=== PATIENT | female | born 1960 | race Caucasian/White ===

== ENCOUNTER 2020-01-30 05:53 | Outpatient (CLI) | payer BC, SELFPAY ==
[2020-01-30 16:51] LABS: SARS-CoV-2 RNA PCR Negative
== END 2020-01-30 05:54 | disposition home or self-care (01) ==
LOC: ANHCOVIDDT 05:54
PROVIDERS: Visit Provider Urology
DX: Z01.812 Encounter for preprocedural laboratory examination (principal); Z20.828 Contact with and (suspected) exposure to other viral communicable diseases
CPT/HCPCS: 87635; C9803; U0003

== ENCOUNTER 2020-01-31 00:54 | Day surgery (SDC) | payer BC, SELFPAY ==
[2020-01-30 14:56] VITALS: BMI 17.6
--- NOTE | ~2020-01-31 | XR_ITS ---
EXAMINATION: XR abdomen/kub 1V DATE: 01/31/2020 07:25 INDICATION: Nephrolithiasis for planned lithotripsy. TECHNIQUE: A supine view of the abdomen on 2 radiographs was obtained. COMPARISON: None. FINDINGS: 16 x 10 mm stone projecting over the proximal left ureter. A cluster of several smaller stones projec t over the lower pole of the left kidney. No right-sided nephrolithiasis. 8.5 cm diameter ball of sto ol at the rectum. No dilated loops of gas-filled bowel to suggest obstruction. IMPRESSION: 1. Left nephrolithiasis. 2. 8.5 cm ball of stool at the rectum. Correlate for constipation or possible fecal impaction. Reviewed, dictated and finalized at location A. IMPRESSION: 1. Left nephrolithiasis. 2. 8.5 cm ball of stool at the rectum. Correlate for constipation or possible f ecal impaction.
[2020-01-31] MEDS: LACTATED RINGERS 1,000 ML 30 ML IV CONT (07:30)
--- NOTE | 2020-01-31 07:42 | ECG_ITS ---
Measurements Intervals [place] Rate: 85 P: 67 [place]: 166 QRS: 85 QRSD: 86 T: 68 QT: 365 QTc: 434 Interpretive Statements SINUS RHYTHM BASELINE ARTIFACT- I, AVR, AVL NORMAL ECG Electronically Signed On 01-31-2020 8:26:04 CDT by Bolivar Elizalde D.O.
[2020-01-31 08:01] VITALS: BP 135/61; PULSE 98; RESP 16; TEMP 36.4; O2SAT 100
[2020-01-31 08:14] LABS: INR 1.1
[2020-01-31 08:15] LABS: Partial Thromboplastin Time 34.4 SECONDS (22.3-36.8)
--- NOTE | 2020-01-31 08:36 | P.HP_ITS ---
H&P: HPI History of Present Illness Chief complaint: Left Ureteral Stone Narrative: Katie Daniels is a 59 year old female who was recently seen at [facility] in [place]. Full she was originally admitted for progressive weakness. During her evaluation she was found to have a 12-13 mm left ureteral calculus with hydronephrosis. Surprisingly she had been completely asymptomatic. Her white count was normal we can have no sign of urinary tract infection. Her renal function was normal. Patient has a history of stones and was adamant to not have a stent placed despite our recommendations. She now presents for lithotripsy of the left ureteral calculus. Review of Systems Constitutional: Constitutional: Reports weakness Eyes: Eyes: Reports as per HPI ENT: Reports as per HPI Cardiovascular: Cardiovascular: Reports as per HPI Respiratory: Respiratory: Reports as per HPI Gastrointestinal: Gastrointestinal: Reports as per HPI Meds Home Medications and Allergies Home Medications Medication Instructions Recorded Confirmed Type cephalexin [Keflex] 500 mg PO Q6H 01/30/20 01/31/20 History cyanocobalamin (vitamin B-12) 1,000 mcg SUBCUT DAILY 01/30/20 01/31/20 History folic acid 1 mg PO DAILY 01/30/20 01/31/20 History Allergies Allergy/AdvReac Type Severity Reaction Status Date / Time No Known Allergies Allergy Verified 01/31/20 07:32 Vital Signs Vital Signs - 24 hr 01/31/20 08:01 Temperature 36.4 C Pulse Rate 98 Respiratory Rate 16 Blood Pressure 135/61 Pulse Oximetry 100 Exam Const: General: no acute distress HENMT: General nose exam: Normal nares present Eyes: EOM: EOMs intact bilaterally Resp: Effort & Inspection: normal respiratory effort Cardio: Rate: regular rate GI: Percussion: Yes normal to percussion Skin: General skin exam: normal color Assessment and Plan Assessment and plan (1) Left ureteral calculus: Code(s): N20.1 - Calculus of ureter Status: Acute Assessment and Plan: Lithotripsy of left ureteral calculus. Serene continues to refuse having a stent placed. She is aware of the risk of stone causing obstruction requiring further intervention
--- NOTE | 2020-01-31 09:03 | WPDANESEPPF ---
Anes - Initial Pre Proc Eval Procedure: Operation Date: 01/31/20 09:30 Proposed Procedures p Left Extracorporeal Shock Wave Lithotripsy, Possible Left Ureteral Stent Placement - Josue Cintron MD Date/Time: 01/31/20 09:03 Surgeon: Josue Cintron MD Pre Op Diagnosis: Left Ureteral Stone Patient Data Age: 59 Gender: F Height: 5 ft 3 in Weight: 47.1 kg Last Vital Signs Temp 97.6 F 01/31/20 08:01 Pulse 98 01/31/20 08:01 Resp 16 01/31/20 08:01 BP 135/61 01/31/20 08:01 Pulse Ox 100 01/31/20 08:01 Allergies Allergy/AdvReac Type Severity Reaction Status Date / Time No Known Allergies Allergy Verified 01/31/20 07:32 Home Medications Medication Instructions Recorded Confirmed Type cephalexin [Keflex] 500 mg PO Q6H 01/30/20 01/31/20 History cyanocobalamin (vitamin B-12) 1,000 mcg SUBCUT DAILY 01/30/20 01/31/20 History folic acid 1 mg PO DAILY 01/30/20 01/31/20 History Laboratory Tests 01/31/20 07:57 PT 14.0 Seconds Seconds (11.1-14.7) INR 1.1 APTT 34.4 SECONDS SECONDS (22.3-36.8) Patient hx anesthesia problems: none Family hx anesthesia problems: none [facility] Past Medical History Medical History (Updated 01/31/20 @ 09:02 by Darius Delgado MD) Depression Migraine Peripheral neuropathy Anes - Eval Final PreProcedure Day of Procedure 01/31/20 09:03 Patient weight: normal Heart: regular rate and rhythm Lungs: clear to auscultation Airway: Mallampati scale class II Neurological: alert and oriented Last oral intake: >/= 8 hours ASA classification: II Emergent: no Anesthetic plan: proceed Anesthesia type and monitoring: general LMA and standard monitoring Informed Consent: The patient's anesthetic plan and its attendant risks and benefits were discussed with the patient/family/POA. Questions were solicited and answers provided to the satisfaction of the patient/family/POA.
[2020-01-31] MEDS: ceFAZolin 2 GM/D5W 50 ML 2 GM/50 ML BAG IVPB (09:18)
--- NOTE | 2020-01-31 09:55 | PM.PROC ---
Procedure Note - Detailed Date of procedure: 01/31/20 Pre-op diagnosis: Left Ureteral Stone Post-op diagnosis: same Procedure performed: ESWL of 12-13 mm left ureteral calculus Description of procedure: Patient was taken to the operative suite and correctly identified. Once anesthesia was obtained the stone was localized in both planes 2500 shocks was given to the stone. Difficult to tell the amount of fragmentation at this point time. She is taken recovery room stable condition. Given the standard post lithotripsy instructions. She will follow up in about 10 days with a KUB. She is aware she develops any significant pain fevers or other issues she is to call us so we can deal with appropriately. Anesthesia: GLMA Surgeon: Josue Cintron MD Drains: No Packing: No Pathology: none sent Complications: No immediate complications Condition: stable Disposition: PACU
[2020-01-31 10:05] VITALS: BP 128/84; PULSE 73; RESP 14; TEMP 36.4; O2SAT 100
[2020-01-31 10:19] VITALS: BP 128/75; PULSE 71; RESP 12; O2SAT 100
[2020-01-31 10:34] VITALS: BP 123/64; PULSE 71; RESP 16; O2SAT 98
[2020-01-31 10:50] VITALS: BP 160/58; PULSE 76; RESP 16
--- NOTE | 2020-01-31 11:14 | SUR.PHASEII ---
1114 spoke with daughter, on her way to [employer] pt
[2020-01-31 11:25] VITALS: BP 125/68; PULSE 76; RESP 14
--- NOTE | 2020-01-31 11:54 | SUR.PHASEII ---
[address] warner, pt currently on keflex at home, he wants her to finish the keflex and not get the bactrim filled
== END 2020-01-31 11:53 | disposition home or self-care (01) ==
PROVIDERS: Visit Provider Urology
PROC: (CPT 50590; principal; 2020-01-31 09:30)
DX: N20.1 Calculus of ureter (principal); G62.9 Polyneuropathy, unspecified; F32.9 Major depressive disorder, single episode, unspecified
CPT/HCPCS: 50590; 36415; 74018; 85610; 85730; 93005; J0690; J1100; J2370; J2405; J2704; J3010; J7120

== ENCOUNTER 2020-02-29 10:10 | Outpatient (CLI) | payer BC, SELFPAY ==
--- NOTE | ~2020-02-29 | XR_ITS ---
XR abdomen/kub 1V 02/29/2020 10:39 Indication: Left ureteral stone Procedure: KUB Comparison: 01/31/2020 Findings: Bowel gas pattern is nonobstructive. There are nonobstructing left renal stones. There are calcifications in the left pelvis, consistent with distal ureteral stones post lithotripsy. No acute osseous abnormality. Impression: 1: Left renal and distal ureteral stones. Correlate for recent lithotripsy. Reviewed, dictated and finalized at location A. Impression: 1: Left renal and distal ureteral stones. Correlate for recent lithotripsy.
== END 2020-02-29 10:11 | disposition home or self-care (01) ==
LOC: ANHIMG 10:16
PROVIDERS: Visit Provider Urology
DX: N20.1 Calculus of ureter (principal); N20.0 Calculus of kidney
CPT/HCPCS: 74018